=== PATIENT | female | born 1955 | race Caucasian/White ===

== ENCOUNTER 2021-05-21 09:38 | Emergency (ER) | payer MEDICAID, SELFPAY ==
[2021-05-21 09:39] VITALS: O2SAT 98
[2021-05-21 09:40] VITALS: BP 140/81; PULSE 98; RESP 16; TEMP 36.1; O2SAT 97; BMI 24.6
--- NOTE | 2021-05-21 10:01 | EKG12_ITS ---
Test Reason : PALPS Blood Pressure : / mmHG Vent. Rate : 091 BPM Atrial Rate : 091 BPM P-R Int : 148 ms QRS Dur : 076 ms QT Int : 380 ms P-R-T Axes : 061 -17 050 degrees QTc Int : 467 ms Sinus rhythm with marked sinus arrhythmia Low voltage QRS Inferior infarct , age undetermined Abnormal ECG Confirmed by RICHIE RAMSEY, SHIRA ([id number]), editor managing director KATHLEEN VU ([id number]) on 05/22/2021 2:05:13 PM Referred By: FLO Confirmed By:SHIRA QIUROZ MD
--- NOTE | 2021-05-21 10:01 | EDS_ITS ---
HPI History of Present Illness Chief Complaint: Shortness of Breath Informant: patient Narrative Narrative: Presents for evaluation palpitations over the past few days. 10 days into Covid symptoms. Diagnosed with Covid at [facility] a week ago. Reported headache myalgias nausea and diarrhea. Loss of taste and smell. Mild cough. No dyspnea. Decreased appetite. Covid exposure with roommate. Denies chest or abdominal pain. No urinary symptoms. Prior similar symptoms: No PFSH PFSH Allergy/AdvReac Type Severity Reaction Status Date / Time No Known Allergies Allergy Verified 05/21/21 09:40 Social History Smoking Status: Never smoker ROS ROS ED Constitutional Constitutional ED: Reports fever(s); Denies chills or sweats Eyes Eyes: Denies change in vision ENT ENT ED: Denies dysphagia or sore throat Cardiovascular Cardiovascular: Denies chest pain, leg edema, palpitations or racing heartbeat Respiratory/Chest Respiratory/Chest: Reports cough; Denies dyspnea or dyspnea on exertion Gastrointestinal Gastrointestinal: Reports diarrhea; Denies abdominal pain, nausea or vomiting Genitourinary Genitourinary ED: Denies dysuria, hematuria or urinary frequency Musculoskeletal Musculoskeletal: Reports myalgias; Denies back pain, extremity pain or neck pain Integumentary Denies rash or wounds Neurologic Neurologic: Reports headache(s); Denies paresthesias or weakness EXAM Physical Exam Const Vital Signs: 05/21/21 09:39 05/21/21 09:40 05/21/21 12:44 Temperature 97 F L Temperature Source Temporal Pulse Rate 98 Respiratory Rate 16 Respiratory Effort Normal Blood Pressure 140/81 H 129/82 H Blood Pressure Mean 100 97 Pulse Ox 97 95 Oxygen Delivery Method Room Air Room Air 05/21/21 13:51 Temperature Temperature Source Pulse Rate 71 Respiratory Rate 18 Respiratory Effort Blood Pressure 125/82 H Blood Pressure Mean Pulse Ox 95 Oxygen Delivery Method Positive well nourished and well developed General Appearance ED: well developed and NAD HEENT HEENT Narrative: Mild dry mucosal membranes. normocephalic and atraumatic Eyes PERRL, EOMs intact bilaterally and conjunctivae normal General Eye ED: Yes normal appearance of both eyes Neck no lymphadenopathy and supple General: Negative for tenderness Chest Wall Chest: Negative for tenderness Resp normal respiratory effort and normal air movement Effort and Inspection: symmetric chest movement; Negative for respiratory distress Cardio regular rate, regular rhythm and no murmurs Peripheral Pulses: pulses 2+ throughout GI normal to inspection, nondistended, normoactive bowel sounds and non-tender Palpation: Negative for guarding or rebound tenderness present Back/Spine no CVA tenderness and no thoracic nor lumbar tenderness Extremity normal to inspection General Extremety ED: Negative for edema or tenderness General Extremity: Negative for edema Neuro oriented x3 and no sensory deficits noted Sensorium / Orientation: awake and alert Skin no rashes or lesions noted and no wounds MDM MDM MDM Narrative Medical decision making narrative: Patient presenting with confirmed Covid per patient. She is on day 10. Vitals stable pulse ox 97% on arrival. She has no past medical history. Primary complaint palpitations. EKG was normal. I did check electrolytes, sodium 132 potassium 3.3, creatinine 0.71. She was given a liter of fluids with her slight dry mucosal membranes. Potassium was replaced. Reevaluation she states chest discomfort, chest x-ray obtained noting right lower lobe developing infiltrate. This secondary to Covid. Discussed viral syndrome with the patient. Troponin did return negative. Patient not hypoxic no respiratory distress, low suspicion for PE. I discussed findings with the patient. Patient did not meet any criteria for antibiotic treatment. I discussed this with the patient. Discussed monitor for worsening respiratory symptoms. Discussed picking up on pulse oximeter monitoring for lower pulse ox. Return precautions discussed. All questions were answered. Patient is being discharged under pandemic conditions under declared global, national and state disaster activation, with limited medical resources. Patient and community understands this. Results discussed in layman's terms to the patient satisfaction. All questions answered in layman's terms. Patient understands importance of follow-up care as directed. Patient has been instructed to return to the ED immediately if new symptoms, problems, or questions occur. We mutually agree with the plan of disposition. The patient understand that they may call or return with any questions or concerns at any time. Lab Data Labs: Laboratory Results - last 24 hr 05/21/21 05/21/21 10:20 10:20 Sodium 132 L Potassium 3.3 L Chloride 98 Carbon Dioxide 25.0 Anion Gap 9 BUN 7 Creatinine 0.71 Estim Creat Clear Calc 86.56 Est GFR (MDRD) Af Amer 106 Est GFR (MDRD) Non-Af 88 BUN/Creatinine Ratio 9.8 L Glucose 103 Calcium 8.5 Troponin I High Sens 5 Radiography Chest X-Ray - ED: 1 View, Read by ED Physician and Read by Radiologist Diagnostic Testing: Clinical Impression(s) from Imaging Studies Chest X-Ray 05/21/21 11:00 IMPRESSION: Developing right lower lobe airspace disease. Electronically Signed: Lan Castillo MD (Brooks) at 11:14 EST , Service support , EKG Initial EKG: Attestation: I personally reviewed and interpreted this EKG as follows: Comments: Sinus rate of 91, no ST or T wave changes. QTc 467. Discharge Plan Triage Chief Complaint: Shortness of Breath ED Provider: Chandler Arevalo Dx/Rx/DC Orders Clinical Impression: Pneumonia due to COVID-19 virus, Palpitation, Acute hypokalemia, Acute hyponatremia, Chest pain Instructions: Coronavirus Disease 2019 (COVID-19): Caring for Yourself or Others, ED Chest Pain, Uncertain Cause Primary Care Provider: Kenney Vigil Referrals: Kenney Vigil DO [Primary Care Provider] - 5-7 Days Activity Restrictions/Additional Instructions: Your EKG is normal. Laboratory notes sodium 132, potassium 3.3. Troponin negative. Chest x-ray right lower lobe pneumonia. This is due to Covid with viral infection. Antibiotics will not help. Her pulse ox 95 to 97%. Monitor for any worsening symptoms to return otherwise follow-up with your doctor. Disposition Disposition: Home, Self Care Discharge Date/Time: 05/21/21 14:00
--- NOTE | 2021-05-21 10:03 | NURSING ---
NO OLD EKGS
[2021-05-21] MEDS: 0.9% Normal Saline 1,000 ML 1000 ML IV (10:29)
[2021-05-21 10:50] LABS: Anion Gap 9 (5-15); BUN 7 mg/dL (7-18); BUN/Creat Ratio 9.8 RATIO (10-20); Calcium,Total 8.5 mg/dL (8.5-10.1); Chloride 98 mmol/L (98-107); Creatinine, Serum 0.71 mg/dL (0.55-1.02); EST Glomerular Filtration Rate 88 mL/min (>60); Est Glom Filt Rate - Afr Amer 106 mL/min (>60); Estimated Creatinine Clearance 86.56 ml/min; Glucose 103 mg/dL (74-106); Potassium 3.3 mmol/L (3.5-5.1); Sodium Level 132 mmol/L (136-145)
--- NOTE | 2021-05-21 11:00 | RAD_ITS ---
STUDY: X-RAY CHEST REASON FOR EXAM: Female, 66 years old. cough TECHNIQUE: AP COMPARISON: None. FINDINGS: EKG leads project over the chest. Ill-defined parenchymal opacity of the right lung base. There is no demonstrated pleural abnormality. Normal size heart. Normal mediastinum and sabrina. Normal visualized pulmonary arteries. Normal visualized aortic arch and descending thoracic aorta. Normal visualized thoracic spine. Normal visualized ribs, clavicles, and shoulders. There is no demonstrated abnormality of the visualized soft tissue structures of the upper abdomen. RAD/Chest 1 View (Portable) IMPRESSION: Developing right lower lobe airspace disease. Electronically Signed: Lan Castillo MD (Brooks) at 11:14 EST , Service support ,
[2021-05-21 12:44] VITALS: BP 129/82; O2SAT 95
[2021-05-21 13:38] LABS: Troponin-I HS 5 pg/mL (3.0-54.0)
[2021-05-21 13:51] VITALS: BP 125/82; PULSE 71; RESP 18; O2SAT 95
[2021-05-21] MEDS: Potassium Chloride Oral Tablet 20 MEQ 40 MEQ PO (13:51)
== END 2021-05-21 14:00 | disposition home or self-care (01) ==
PROVIDERS: Emergency Provider Emergency Medicine; PCP Student in an Organized Health Care Education/Training Program
DX: U07.1 COVID-19 (principal); J12.82 Pneumonia due to coronavirus disease 2019; E87.6 Hypokalemia; E87.1 Hypo-osmolality and hyponatremia; R00.2 Palpitations; R19.7 Diarrhea, unspecified
CPT/HCPCS: 71045; 80048; 84484; 93005; 96360; 96361; 99284; J7030; A4216

== ENCOUNTER 2022-08-04 12:27 | Inpatient (IN) | payer MEDICARE, MEDICAID, SELFPAY ==
[2022-08-04] VITALS (26 sets, daily range): BP systolic 92–139; BP diastolic 69–104; PULSE 86–127; RESP 12–88; TEMP 36.6–36.7; O2SAT 93–99; BMI 25.9
--- NOTE | 2022-08-04 12:37 | ED.VIS.CHEST ---
HPI History of Present Illness Chief Complaint: Palpitations Narrative Narrative: 67-year-old female here for palpitations. Spoke with the patient's oncologist Dr. Crawford who noted the patient has been experiencing 2 weeks of fatigue intermittent palpitations. He states he performed an EKG in his office which showed A. fib with RVR. He told her to come right away. The patient states she is having 2 weeks of intermittent palpitations notes some occasional shortness of breath and chest discomfort. States symptoms have been intermittent, severe, worse with exertion, improved by rest. The patient denies recent surgery in the last 4 weeks or immobilization in the last 3 days, denies previous diagnosis of DVT or PE, hemoptysis, unilateral leg swelling or malignancy with treatment the last 6 months. No estrogen use noted. CVD Risk Factors: Negative for Family History 1' </=55 [facility] Medical History (Updated 08/04/22 @ 15:[address] Mark Teixeira, DO) A-fib Hypotension Allergy/AdvReac Type Severity Reaction Status Date / Time No Known Allergies Allergy Verified 08/04/22 12:28 Social History Smoking Status: Never smoker ROS ROS ED ROS Narrative Constitutional: Denies fever HEENT: Denies sore throat Neck: Denies neck pain Cardiovascular: Denies chest pain, syncope, endorses palpitations Respiratory: Denies shortness of breath GI: Denies nausea vomiting or abdominal pain : Denies changes in urinary habits Musculoskeletal: Denies muscle or joint pain Neurologic: Denies numbness weakness or loss of sensation Skin denies rash EXAM Physical Exam Narrative Exam Narrative: Nursing triage notes reviewed, Vital signs reviewed Constitutional: please see mdm HENT: MMM Eyes: Pupils equal round and reactive to light, Extraocular muscles intact Neck: No stridor, + JVD, full neck ROM Lungs: Clear to auscultation, No wheezing or rales. No increased work of breathing, no conversational dyspnea, no accessory muscle use, no nasal flaring. No respiratory distress noted Heart: Fast, irregular rate consistent with atrial fibrillation no murmurs, No rubs and No gallops, 2+ distal pulses (radial, femoral, posterior tibial) in all extremities Abdomen: Soft, there is no tenderness, rigidity, rebound or guarding, no obvious peritoneal signs, no palpable pulsatile abdominal masses, no auscultated abdominal bruit : No CVAT Extremities: No edema Neuro: No focal neurological deficits, cranial nerves II through XII intact, 5/5 strength in all extremities. Intact sensation to light touch in all extremities, 2+ reflexes bilateral patella dens. Normal gait. No ataxia. Skin: No rash or lesions noted Const Vital Signs: 08/04/22 12:28 08/04/22 13:12 08/04/22 14:14 Temperature 98 F Temperature Source Temporal Pulse Rate 123 H 100 Respiratory Rate 18 20 H Blood Pressure 139/104 H 128/103 H Blood Pressure Mean 115 111 Pulse Ox 96 97 Oxygen Delivery Method Room Air Room Air Room Air 08/04/22 14:50 Temperature Temperature Source Pulse Rate Respiratory Rate 88 H Blood Pressure Blood Pressure Mean Pulse Ox Oxygen Delivery Method MDM MDM MDM Narrative Medical decision making narrative: Chief Complaint: External records reviewed: I considered: Arrhythmia, SVT, a flutter, A. fib, ACS, electrolyte abnormality, dehydration, anemia, PE, pneumonia, thyroid dysfunction Initial EKG showed A. fib with RVR but no obvious ischemic changes. Labs images were remarkable for pulmonary edema on x-ray but no pneumonia. BNP elevated consistent with the patient's JVD and concern for heart failure secondary to A. fib with RVR. I treated the patient with oral metoprolol and IV metoprolol gave her aspirin. No evidence of acute myocardial ischemia on EKG or troponin. TSH within normal limits no evidence of hyperthyroidism is precipitating cause labs with hypokalemia as wel. This was replaced. Patient continued to be in A. fib with RVR despite treatment with metoprolol both orally and IV. Given ongoing arrhythmia, elevated heart rate, signs of CHF admit the patient for ongoing evaluation. I held giving Lasix at this time given patient's soft blood pressures. I considered pulm embolism as a potential etiology however patient had a low risk Wells score and no stigmata of VTE on exam I considered obtain a CT of the chest without is unnecessary at this time. Factors affecting care: History of thrombocytosis Social determinants of health: Elderly History obtained from others: Dr. Crawford (oncologist) Shared decision making: I will have a discussion with the patient and or visitors regarding risk/benefits of further testing or admission. They will be made aware of of the risk/benefits inherent in this decision they will be given the opportunity to voice understanding. Consults: Spoke with the patient's oncologist. He endorses patient presented with palpitations noted to be in A. fib with RVR sent her directly to the emergency department. Spoke with hospitalist (Dr. Grover) who agreed with the admission. Lab Data Attestation: I reviewed the patient's lab results. Lab results narrative: CBC without significant leukocytosis or anemia, no thrombocytopenia noted baseline thrombocytosis BMP with evidence of hypokalemia, no significant anion gap to suggest endorgan hypoperfusion or acute kidney injury Magnesium is within normal limits TSH within normal limits no evidence of hyperthyroidism Troponin negative for evidence of myocardial ischemia BNP elevated concerning for volume overload a Labs: Laboratory Results - last 24 hr 08/04/22 08/04/22 08/04/22 12:50 12:50 12:50 WBC 8.3 RBC 3.71 L Hgb 13.0 Hct 38.4 MCV 103.5 H MCH 35.0 H MCHC 33.9 RDW Std Deviation 56.3 H RDW Coeff of Krista 14.7 H Plt Count 670 H MPV 11.5 Immature Gran % (Auto) 0.400 Neut % (Auto) 74.4 H Lymph % (Auto) 15.5 L Bailey % (Auto) 8.7 Eos % (Auto) 0.0 Baso % (Auto) 1.0 Absolute Neuts (auto) 6.2 Absolute Lymphs (auto) 1.28 Nucleated RBC % 0 Sodium 141 Potassium 2.8 L Chloride 112 H Carbon Dioxide 20.0 L Anion Gap 9 BUN 11 Creatinine 0.68 Estim Creat Clear Calc 86.20 Est GFR (MDRD) Af Amer 113 Est GFR (MDRD) Non-Af 93 BUN/Creatinine Ratio 16.3 Glucose 87 Calcium 7.1 L Magnesium 1.8 Troponin I High Sens 8 B-Natriuretic Peptide 563.0 H TSH 1.41 Radiography Diagnostic Testing: Clinical Impression(s) from Imaging Studies Chest X-Ray 08/04/22 13:12 IMPRESSION: Bibasilar pulmonary infiltrates. Follow-up is recommended. Electronically Signed: Javid Wesley MD at 13:42 EST , EKG Initial EKG: Attestation: I personally reviewed and interpreted this EKG as follows: Comments: EKG shows A. fib with RVR possibly a flutter, no obvious STEMI or ischemic changes Kavon EKG continues to show A. fib with RVR despite metoprolol treatment no obvious STEMI or evidence of myocardial ischemia Discharge Plan Triage Chief Complaint: Palpitations ED Provider: Mark Teixeira Dx/Rx/DC Orders Clinical Impression: Atrial fibrillation with rapid ventricular response, CHF (congestive heart failure), Acute hypokalemia Primary Care Provider: Kenney Vigil Referrals: Kenney Vigil DO [Primary Care Provider] - Disposition Disposition: Acute Care Hospital [facility]
--- NOTE | 2022-08-04 13:12 | RAD_ITS ---
STUDY: X-RAY CHEST REASON FOR EXAM: Female, 67 years old. Chest pain TECHNIQUE: Single AP portable view of the chest. COMPARISON: Comparison is made with prior study dated 05/21/2021. FINDINGS: EKG electrodes are seen. Persistent bibasilar pulmonary infiltrates slightly worse on the left side. Follow-up is recommended. Blunting of the right costophrenic angle. Normal size heart. Normal mediastinum and sabrina. Normal visualized pulmonary arteries. Normal visualized aortic arch and descending thoracic aorta. Normal visualized thoracic spine. Normal visualized ribs, clavicles, and shoulders. There is no demonstrated abnormality of the visualized soft tissue structures of the upper abdomen. RAD/Chest 1 View (Portable) IMPRESSION: Bibasilar pulmonary infiltrates. Follow-up is recommended. Electronically Signed: Javid Wesley MD at 13:42 EST ,
--- NOTE | 2022-08-04 13:12 | EKG12_ITS ---
Test Reason : CHEST TIGHT Blood Pressure : / mmHG Vent. Rate : 144 BPM Atrial Rate : 000 BPM P-R Int : 000 ms QRS Dur : 068 ms QT Int : 284 ms P-R-T Axes : 000 016 021 degrees QTc Int : 439 ms Atrial fibrillation with rapid ventricular response with premature ventricular or aberrantly conducte d complexes Low voltage QRS Nonspecific ST abnormality Abnormal ECG Confirmed by RICIHE RAMSEY, SHIRA ([id number]), supervising editor news reel RUDDY BELTRÁN ([id number]) on 08/06/2022 2:13:08 PM Referred By: AZUL Confirmed By:SHIRA QUIROZ MD
[2022-08-04] MEDS: Aspirin 81 MG TAB.CHEW 324 MG PO (13:21)
[2022-08-04] MEDS: 0.9% Normal Saline 1,000 ML 1000 ML IV (13:23)
[2022-08-04 13:25] LABS: Absolute Lymphocyte Count 1.28 X10^3/uL (0.83-4.51); Absolute Neutrophil Count 6.2 X10^3/uL (2.0-7.7); Basophil# 0.08 X10^3/uL; Hematocrit 38.4 % (37-47); Lymphocyte # 1.28 X10^3/ul (0.83-4.51); Lymphocyte % 15.5 % (19-41); Mean Corp Hgb Conc 33.9 g/dL (32-36); Mean Corpuscular Volume 103.5 fL (81-99); Mean Platelet Vol. 11.5 fl (6.2-12.0); Monocyte# 0.72 X10^3/uL; Monocyte% 8.7 % (0-10); NRBC Flagged by Analyzer 0 % (0-5); Neutrophil # 6.16 X10^3/uL (2.7-7.7); Neutrophil % 74.4 % (47-70); Platelet Count 670 K/mm3 (150-450); RBC Distribution Width CV 14.7 % (11.6-14.6); RBC Distribution Width SD 56.3 fl (35.1-43.9); Red Blood Count 3.71 M/mm3 (4.2-5.4); White Blood Count 8.3 K/mm3 (4.4-11.0)
[2022-08-04] MEDS: Metoprolol Tartrate 25 MG Tablet PO (13:26)
[2022-08-04 13:47] LABS: Anion Gap 9 (5-15); BUN 11 mg/dL (7-18); BUN/Creat Ratio 16.3 RATIO (10-20); Calcium,Total 7.1 mg/dL (8.5-10.1); Chloride 112 mmol/L (98-107); Creatinine, Serum 0.68 mg/dL (0.55-1.02); EST Glomerular Filtration Rate 93 mL/min (>60); Est Glom Filt Rate - Afr Amer 113 mL/min (>60); Glucose 87 mg/dL (74-106); Magnesium 1.8 mg/dL (1.6-2.6); Potassium 2.8 mmol/L (3.5-5.1); Sodium Level 141 mmol/L (136-145); Thyroid Stim Hormone (TSH) 1.41 uIU/mL (0.358-3.74); Troponin-I HS 8 pg/mL (3.0-54.0)
[2022-08-04] MEDS: Metoprolol Tartrate 5 MG/5 ML Vial IV (14:06)
[2022-08-04] MEDS: Potassium Chloride Oral Tablet 20 MEQ 60 MEQ PO (14:13)
--- NOTE | 2022-08-04 14:25 | EKG12_ITS ---
Test Reason : RECHECK Blood Pressure : / mmHG Vent. Rate : 121 BPM Atrial Rate : 187 BPM P-R Int : 000 ms QRS Dur : 070 ms QT Int : 344 ms P-R-T Axes : 000 039 031 degrees QTc Int : 488 ms Atrial fibrillation Low voltage QRS Borderline ECG When compared with ECG of 04-AUG-2022 12:34, MANUAL COMPARISON REQUIRED, DATA IS UNCONFIRMED Confirmed by RICHIE RAMSEY, SHIRA ([id number]), technical editor RUDDY BELTRÁN ([id number]) on 08/06/2022 2:12:46 PM Referred By: Confirmed By:SHIRA QUIROZ MD
--- NOTE | 2022-08-04 14:50 | ED.RN ---
APICAL PULSE 88. VERIFIED X2 NURSES. MONITOR COUNTING t WAVE AT TIMES. PULSE OX HR SAME AUSCULTATED. DR AWARE. NO TOT GIVEN ANY FURTHER METOPROL AT THIS TIME.
--- NOTE | 2022-08-04 15:54 | HP.PCM.HOS_ITS ---
HPI - General General Date of Admission: 08/04/22 Date of Service: 08/04/22 Chief Complaint: palpiations HPI Narrative JACK ALONZO, is a 67 F who presents with 2 weeks of palpitations. Patient does have a history of paroxysmal atrial fibrillation and had been on metoprolol in the past but was taken off due to low blood pressures and being in normal sinus rhythm. Patient was seeing a Dr. Rosas in [place] for this. This felt similar to prior episodes of flareups of her A. fib but this was more persistent. Today, patient had an appointment at Dr. Crawford's office for thrombocytosis and noted that her heart rate was fast and sent her to the emergency room. Patient was noted to be in A. fib with RVR and she received 5 mg IV metoprolol tartrate x1 and 25 mg p.o. x1. Heart rate did slightly improved but the hospital service was contacted. Patient's potassium was noted to be 2.8 and did receive 60 mEq of potassium in the emergency room as well as aspirin. [facility] Medical History A-fib Hypotension Thrombocytosis Home Medications cetirizine 10 mg tablet 10 mg PO DAILY ALLERGIES 08/04/22 [History Last Taken Unknown] Allergy/AdvReac Type Severity Reaction Status Date / Time No Known Allergies Allergy Verified 08/04/22 12:28 Family History (Updated 08/04/22 @ 15:[address] Malvin Grover DO) Grandmother No problems noted. Mother Heart disease Social History (Updated 08/04/22 @ 15:[address] Malvin Grover DO) Smoking Status: Never smoker alcohol intake: current alcohol intake frequency: holidays/special occasions only substance use type: marijuana ROS ROS Narrative Was had some chest pain with this. Did have some pulsations in her neck with her tachycardia. All review of systems were negative except as mentioned above in the history of present illness and the other review of systems. Vital Signs Vital Signs Vital Signs: 08/04/22 12:28 08/04/22 13:12 08/04/22 14:14 Temperature 36.6 C Temperature Source Temporal Pulse Rate 123 H 100 Respiratory Rate 18 20 H Blood Pressure 139/104 H 128/103 H Blood Pressure Mean 115 111 Pulse Ox 96 97 Oxygen Delivery Method Room Air Room Air Room Air 08/04/22 14:50 08/04/22 15:30 Temperature Temperature Source Pulse Rate 86 Respiratory Rate 88 H 16 Blood Pressure Blood Pressure Mean Pulse Ox 98 Oxygen Delivery Method Room Air Weight Weight: 79.7 kg Body Mass Index (BMI) 25.9 Physical Exam Const alert and no apparent distress HEENT normocephalic and hearing grossly normal bilaterally Neck no lymphadenopathy Neck Narrative: No thyromegaly Resp normal respiratory effort, no retractions, no use of accessory muscles and clear to auscultation bilaterally Cardio regular rate, regular rhythm, S1 normal heart sound and S2 normal heart sound GI normal to inspection, nondistended, normoactive bowel sounds, soft to palpation, non-tender and non-distended Extremity normal to inspection Neuro oriented x3 and moves all extremities Sensorium / Orientation: awake and alert Psych affect normal Results Lab / Micro Data Attestation: I reviewed the patient's lab results. Result Diagrams: 08/04/22 12:50 08/04/22 12:50 Labs: Laboratory Results - last 24 hr 08/04/22 12:50: WBC 8.3, RBC 3.71 L, Hgb 13.0, Hct 38.4, MCV 103.5 H, MCH 35.0 H , MCHC 33.9, RDW Std Deviation 56.3 H, RDW Coeff of Krista 14.7 H, Plt Count 670 H, MPV 11.5, Immature Gran % (Auto) 0.400, Neut % (Auto) 74.4 H, Lymph % (Auto) 15.5 L, Bremer % (Auto) 8.7, Eos % (Auto) 0.0, Baso % (Auto) 1.0, Absolute Neuts (auto) 6.2, Absolute Lymphs (auto) 1.28, Nucleated RBC % 0 08/04/22 12:50: Sodium 141, Potassium 2.8 L, Chloride 112 H, Carbon Dioxide 20.0 L, Anion Gap 9, BUN 11, Creatinine 0.68, Estim Creat Clear Calc 86.20, Est GFR (MDRD) Af Amer 113, Est GFR (MDRD) Non-Af 93, BUN/Creatinine Ratio 16.3, Glucose 87, Calcium 7.1 L, Magnesium 1.8, Troponin I High Sens 8, TSH 1.41 08/04/22 12:50: B-Natriuretic Peptide 563.0 H EKG Initial EKG: Attestation: I personally reviewed and interpreted this EKG as follows: Prior EKG tracings: available for review EKG Rhythm Intrepretation: Atrial Fibrillation (With RVR) Radiology Impression Chest X-Ray 08/04/22 13:12 IMPRESSION: Bibasilar pulmonary infiltrates. Follow-up is recommended. Electronically Signed: Javid Wesley MD at 13:42 EST , Assessment & Plan Assessment/Plan (1) Atrial fibrillation with rapid ventricular response: PLAN: Patient has a history of paroxysmal atrial fibrillation and was stopped with a it security administrator in [place] for this. Have been taken off metoprolol in the past due to being in normal sinus rhythm but also having a lower blood pressure. Patient did receive metoprolol in the emergency room but heart rate is continued to climb upwards. Will initiate diltiazem bolus as well as drip. If patient's blood pressure does state lower go lower may need to consider amiodarone infusion. Patient is [id number] score is 2 and did discuss with her about recommendations for anticoagulation to help prevent stroke. Patient is clearly was not happy about being on anticoagulation but understood the risks and associated with not being anticoagulant including stroke. We will initiate anticoagulation with enoxaparin for now. Check an echocardiogram Consult cardiology Check TSH (2) Acute hypokalemia: PLAN: Received 60 mK in the emergency room Check magnesium level in her place of low PLAN: Plan Chronic conditions * Thrombocytosis: Patient was to see Dr. Crawford today but was sent here because of the A. fib. Follow up as outpatient. VTE prophylaxis: Not indicated patient be anticoagulated CHF: Ruled out. X-ray reviewed and did not show any evidence of any vascular congestion. BNP was elevated but that is most likely due to the patient being in each fibrillation with RVR. Charges/Coding Visit Charges Inpatient E&M: 69492 Init Hosp L3
--- NOTE | 2022-08-04 16:01 | ECHOCS_ITS ---
Reason For Study: Afib/Flutter Procedure This was a 2D Doppler, Color Flow transthoracic echocardiogram. The study was technically difficult. Contrast injection was performed. Exam performed portable in patient room. Left Ventricle Normal LV size. The estimated ejection fraction is 37 %. There is moderate global hypokinesis of the left ventricle. Right Ventricle Moderately dilated right ventricle. Mild global right ventricular systolic dysfunction. Atria The left atrium is moderately enlarged. The right atrium is mildly enlarged. Mitral Valve Bileaflet diffuse mitral valve thickening. Tricuspid Valve Normal tricuspid valve. Mild tricuspid valve insufficiency. Pulmonary artery systolic pressure is 26 mmHg. Aortic Valve Trisinus/trileaflet aortic valve. Pulmonic Valve Normal pulmonic valve. Great Vessels Normal aortic root. The pulmonary artery is normal size. Normal inferior vena cava. Pericardium/Pleural Small pericardial effusion. Medication Diluted definity 2ml given slow IV push to enhance endocardial definition. MMode/2D Measurements & Calculations LVIDd: 5.1 cm IVSd: 0.49 cm Ao root diam: 3.6 cm LVIDs: 3.8 cm LVPWd: 0.52 cm LA dimension: 3.9 cm RVDd: 3.2 cm FS: 26.0 % LAV(MOD-bp): 70.6 ml LA A4 area: 24.3 cm2 RA A4 area: 22.8 cm2 LAV(MOD-bp) Indexed: 36.2 ml/m2 LAV(MOD-sp2): 52.7 ml LAV(MOD-sp4): 71.8 ml Doppler Measurements & Calculations MV E max noemy: 96.9 cm/sec MV V2 max: 129.9 cm/sec Ao V2 max: 76.8 cm/sec MV max P.7 mmHg Ao max P.4 mmHg MV V2 mean: 65.1 cm/sec MV mean P.2 mmHg MV V2 VTI: 27.0 cm LV V1 max: 59.8 cm/sec MR max noemy: 410.8 cm/sec PA V2 max: 57.3 cm/sec LV V1 max P.4 mmHg MR max P.5 mmHg MR mean noemy: 329.6 cm/sec MR mean P.0 mmHg MR VTI: 128.2 cm TR max noemy: 237.7 cm/sec TR max P.6 mmHg ECHO/Echo Complete W/ Contrast Interpretation Summary Normal LV size. The estimated ejection fraction is 37 %. The left atrium is moderately enlarged. Small pericardial effusion. Ordering Physician: Malvin Grover Referring Physician: Kenney Vigil Performed By: Ron Aguirre RCS
[2022-08-04] MEDS: dilTIAZem 25 MG/5 ML Vial 20 MG IV BOLUS (16:41)
[2022-08-04 17:16] LABS: Magnesium 2.1 mg/dL (1.6-2.6); Troponin-I HS 9 pg/mL (3.0-54.0)
[2022-08-04] MEDS: Enoxaparin 80 MG/0.8 ML Syringe SC (17:37)
--- NOTE | 2022-08-04 18:56 | CON.PCM.CA_ITS ---
Assessment & Plan Assessment/Plan (1) Atrial fibrillation with rapid ventricular response: PLAN: She presents with atrial fibrillation with a rapid ventricular response rate. The duration of the above is unclear. It does appear that she has been previously diagnosed with this. She had been following up with a petroleum refining firer in [place] who had discontinued her metoprolol. At this particular time I would recommend that we rate control her with intravenous diltiazem and switch her to oral metoprolol in a.m. She does have a [id number] score of 2 and can be anticoagulated. I have discussed this with the oncologist and he has no issues with this. (2) CHF (congestive heart failure): PLAN: She does appear to be in mild congestive heart failure likely secondary to the atrial fibrillation with a rapid ventricular response rate. I suspect this has been going on for a little bit. I would recommend we obtain an echocardiogram for assessment of her ventricular function. * She should be diuresed and her potassium corrected. * It is not clear why she is that hypokalemic. * * Thank you for allowing me to participate in the care of your patient. Please don't hesitate to call if any issues arise. HPI Consult Data Date of Consult: 08/04/22 HPI Narrative HPI Narrative: JAKC ALONZO, is a 67 F who presents after being sent from her oncologist office where she was being evaluated for essential thrombocytosis. She was noted to be in atrial fibrillation with rapid ventricular response rate. She denies any dizziness or diaphoresis near syncope or syncope she however says that she has been short of breath for a bit. She thinks that she was in atrial fibrillation about 6 months ago and saw the petroleum refining firer and was taken off her beta-shira. She does not know whether she has been in and out of atrial fibrillation and does not always feel these episodes. She however has noted progressive shortness of breath and today when she went to see her oncologist was noted to be in atrial fibrillation and sent to the emergency room. She denies any chest pain or paroxysmal nocturnal dyspnea she has not had a cough no pedal edema. [facility] Medical History A-fib Hypotension Thrombocytosis Home Medications cetirizine 10 mg tablet 10 mg PO DAILY ALLERGIES 08/04/22 [History Last Taken Unknown] Allergy/AdvReac Type Severity Reaction Status Date / Time No Known Allergies Allergy Verified 08/04/22 12:28 Family History Grandmother No problems noted. Mother Heart disease Social History Smoking Status: Never smoker alcohol intake: current alcohol intake frequency: holidays/special occasions only substance use type: marijuana ROS Constitutional Constitutional: Denies fever(s) or weight loss Eyes Eyes: Reports systems reviewed and no addt'l complaints, except as documented ENT HEENT: Reports systems reviewed and no addt'l complaints, except as documented Cardiovascular Cardiovascular: Reports dyspnea at rest, dyspnea on exertion and palpitations; Denies chest pain at rest, chest pain with activity, edema or paroxysmal nocturnal dyspnea Respiratory/Chest Respiratory/Chest: Denies dyspnea on exertion, productive cough, shortness of breath at rest or shortness of breath with exertion Gastrointestinal Gastrointestinal: Denies change in bowel habits, nausea, vomiting or weight changes Genitourinary Genitourinary: Denies difficulty urinating Musculoskeletal Musculoskeletal: Denies joint stiffness or muscle weakness Integumentary Integumentary: Denies lesions Neurologic Neurologic: Denies dizziness or syncope Psychiatric Psychiatric: Denies anxiety Endocrine Endocrinology: Denies excessive sweating or fatigue Hematologic/Lymphatic Hematologic/Lymphatic: Denies anemia Allergic/Immunologic Allergic/Immunologic: Denies seasonal rhinorrhea Physical Exam Const alert, oriented x3 and no apparent distress General Appearance: cooperative HEENT hearing grossly normal bilaterally Head and Scalp: atraumatic Eyes EOMs intact bilaterally Neck General: normal visual inspection Chest inspection of chest normal and palpation of chest normal Resp normal respiratory effort Auscultation: clear to auscultation bilaterally Cardio S1 normal heart sound and S2 normal heart sound Jugular Venous Distention: JVD Rhythm: abnormal rhythm GI normal to inspection, nondistended, normoactive bowel sounds Extremity normal capillary refill and no pedal edema Peripheral Pulses: Yes pulses 2+ throughout and femoral pulses present Skin no rashes or lesions noted Neuro oriented x3 and CN's II-XII intact bilaterally Psych Appearance: grossly normal and appropriate Risk Stratification Risk Stratification Applicable: No Objective Data Vital Signs: Vital Signs Temp Pulse Resp BP Pulse Ox O2 Del Method 98.0 F 121 H 14 119/102 H 99 Room Air 08/04/22 15:54 08/04/22 16:45 08/04/22 16:45 08/04/22 16:45 08/04/22 16:45 08/04/22 16:45 Oxygen Delivery Method Room Air Weight: 175 lb 8 oz Body Mass Index (BMI) 25.9 Intake & Output: Intake and Output for Last 24 Hours 08/02/22 08/03/22 08/04/22 23:59 23:59 23:59 Intake Total 1240 / 1240 Balance 1240 / 1240 Lab / Micro Data Result Diagrams: 08/04/22 12:50 08/04/22 12:50 Labs: Laboratory Results - last 24 hr 08/04/22 12:50: WBC 8.3, RBC 3.71 L, Hgb 13.0, Hct 38.4, MCV 103.5 H, MCH 35.0 H , MCHC 33.9, RDW Std Deviation 56.3 H, RDW Coeff of Krista 14.7 H, Plt Count 670 H, MPV 11.5, Immature Gran % (Auto) 0.400, Neut % (Auto) 74.4 H, Lymph % (Auto) 15.5 L, [place] % (Auto) 8.7, Eos % (Auto) 0.0, Baso % (Auto) 1.0, Absolute Neuts (auto) 6.2, Absolute Lymphs (auto) 1.28, Nucleated RBC % 0 08/04/22 12:50: Sodium 141, Potassium 2.8 L, Chloride 112 H, Carbon Dioxide 20.0 L, Anion Gap 9, BUN 11, Creatinine 0.68, Estim Creat Clear Calc 86.20, Est GFR (MDRD) Af Amer 113, Est GFR (MDRD) Non-Af 93, BUN/Creatinine Ratio 16.3, Glucose 87, Calcium 7.1 L, Magnesium 1.8, Troponin I High Sens 8, TSH 1.41 08/04/22 12:50: B-Natriuretic Peptide 563.0 H 08/04/22 16:34: Magnesium 2.1, Troponin I High Sens 9 Cardiology Labs/Tests 08/04/22 12:50: WBC 8.3, RBC 3.71 L, Hgb 13.0, Hct 38.4, MCV 103.5 H, MCH 35.0 H , MCHC 33.9, Plt Count 670 H, MPV 11.5, Immature Gran % (Auto) 0.400, Neut % (Auto) 74.4 H, Lymph % (Auto) 15.5 L, Livingston % (Auto) 8.7, Eos % (Auto) 0.0, Baso % (Auto) 1.0, Absolute Neuts (auto) 6.2, Nucleated RBC % 0 08/04/22 12:50: Sodium 141, Potassium 2.8 L, Chloride 112 H, Carbon Dioxide 20.0 L, Anion Gap 9, BUN 11, Creatinine 0.68, Est GFR (MDRD) Af Amer 113, Est GFR (MDRD) Non-Af 93, BUN/Creatinine Ratio 16.3, Glucose 87, Calcium 7.1 L, M agnesium 1.8 08/04/22 12:50: B-Natriuretic Peptide 563.0 H 08/04/22 16:34: Magnesium 2.1 Rhythm: EKG: ECHO: Stress Test: Cardiac Cath: PCI: CT Surgery: Holter monitor: EPS: PPM: CXR: Chest CT Scan: Radiography Diagnostic Testing: Radiology Impression Chest X-Ray 08/04/22 13:12 IMPRESSION: Bibasilar pulmonary infiltrates. Follow-up is recommended. Electronically Signed: Javid Wesley MD at 13:42 EST ,
[2022-08-04 19:57] LABS: Troponin-I HS 8 pg/mL (3.0-54.0)
[2022-08-04] MEDS: Potassium Chloride Oral Tablet 20 MEQ 40 MEQ PO (20:15)
[2022-08-05] VITALS (17 sets, daily range): BP systolic 91–123; BP diastolic 56–86; PULSE 76–122; RESP 14–20; TEMP 36.5–36.7; O2SAT 93–98
[2022-08-05 06:22] LABS: Absolute Lymphocyte Count 1.43 X10^3/uL (0.83-4.51); Absolute Neutrophil Count 6.1 X10^3/uL (2.0-7.7); Basophil# 0.08 X10^3/uL; Hemoglobin 11.2 g/dL (12.0-15.0); Lymphocyte # 1.43 X10^3/ul (0.83-4.51); Lymphocyte % 17.1 % (19-41); Mean Corpuscular Hgb 33.4 pg (27.0-32.0); Mean Corpuscular Volume 104.5 fL (81-99); Mean Platelet Vol. 11.7 fl (6.2-12.0); Monocyte# 0.74 X10^3/uL; Monocyte% 8.8 % (0-10); NRBC Flagged by Analyzer 0.2 % (0-5); Neutrophil # 6.08 X10^3/uL (2.7-7.7); Neutrophil % 72.6 % (47-70); Platelet Count 632 K/mm3 (150-450); RBC Distribution Width CV 14.8 % (11.6-14.6); RBC Distribution Width SD 56.4 fl (35.1-43.9); Red Blood Count 3.35 M/mm3 (4.2-5.4); White Blood Count 8.4 K/mm3 (4.4-11.0)
[2022-08-05 07:29] LABS: Anion Gap 10 (5-15); BUN 10 mg/dL (7-18); BUN/Creat Ratio 11.6 RATIO (10-20); Calcium,Total 8.7 mg/dL (8.5-10.1); Chloride 106 mmol/L (98-107); Cholesterol 109 mg/dL (200); Creatinine, Serum 0.86 mg/dL (0.55-1.02); EST Glomerular Filtration Rate 70 mL/min (>60); Est Glom Filt Rate - Afr Amer 85 mL/min (>60); Estimated Creatinine Clearance 68.16 ml/min; Glucose 95 mg/dL (74-106); High Density Lipoprotein 38 mg/dL; Potassium 4.5 mmol/L (3.5-5.1); Sodium Level 137 mmol/L (136-145); Triglycerides 58 mg/dL; Very Low Density Lipoprotein 12 mg/dL (5-40)
--- NOTE | 2022-08-05 08:36 | PN.CARD_ITS ---
Subjective Subjective Patient seen and evaluated. Appears to be doing better this morning. Still has some diarrhea and nausea. Objective Data Vital Signs: Vital Signs Temp Pulse Resp BP Pulse Ox O2 Del Method O2 Flow Rate 98.0 F 112 H 17 115/84 H 97 Room Air 2 08/05/22 00:00 08/05/22 06:00 08/05/22 05:00 08/05/22 06:00 08/05/22 05:00 08/05/22 08:12 08/05/22 02:19 Oxygen Flow Rate (L/min) 2 Oxygen Delivery Method Room Air Weight: 175 lb 8 oz Body Mass Index (BMI) 25.9 Intake & Output: Intake and Output for Last 24 Hours 08/03/22 08/04/22 08/05/22 23:59 23:59 23:59 Intake Total 1541.25 / 1556.25 345 / 345 Balance 1541.25 / 1556.25 345 / 345 Lab / Micro Data Result Diagrams: 08/05/22 05:48 08/05/22 05:48 Labs: Laboratory Results - last 24 hr 08/04/22 12:50: WBC 8.3, RBC 3.71 L, Hgb 13.0, Hct 38.4, MCV 103.5 H, MCH 35.0 H , MCHC 33.9, RDW Std Deviation 56.3 H, RDW Coeff of Krista 14.7 H, Plt Count 670 H, MPV 11.5, Immature Gran % (Auto) 0.400, Neut % (Auto) 74.4 H, Lymph % (Auto) 15.5 L, [place] % (Auto) 8.7, Eos % (Auto) 0.0, Baso % (Auto) 1.0, Absolute Neuts (auto) 6.2, Absolute Lymphs (auto) 1.28, Nucleated RBC % 0 08/04/22 12:50: Sodium 141, Potassium 2.8 L, Chloride 112 H, Carbon Dioxide 20.0 L, Anion Gap 9, BUN 11, Creatinine 0.68, Estim Creat Clear Calc 86.20, Est GFR (MDRD) Af Amer 113, Est GFR (MDRD) Non-Af 93, BUN/Creatinine Ratio 16.3, Glucose 87, Calcium 7.1 L, Magnesium 1.8, Troponin I High Sens 8, TSH 1.41 08/04/22 12:50: B-Natriuretic Peptide 563.0 H 08/04/22 16:34: Magnesium 2.1, Troponin I High Sens 9 08/04/22 18:56: Troponin I High Sens 8 08/05/22 05:48: WBC 8.4, RBC 3.35 L, Hgb 11.2 L, Hct 35.0 L, MCV 104.5 H, MCH 33.4 H, MCHC 32.0 D, RDW Std Deviation 56.4 H, RDW Coeff of Krista 14.8 H, Plt Count 632 H, MPV 11.7, Immature Gran % (Auto) 0.500, Neut % (Auto) 72.6 H, Lymph % (Auto) 17.1 L, [place] % (Auto) 8.8, Eos % (Auto) 0.0, Baso % (Auto) 1.0, Absolute Neuts (auto) 6.1, Absolute Lymphs (auto) 1.43, Nucleated RBC % 0.2 08/05/22 05:48: Sodium 137, Potassium 4.5, Chloride 106, Carbon Dioxide 21.0, An ion Gap 10, BUN 10, Creatinine 0.86, Estim Creat Clear Calc 68.16, Est GFR (MDRD) Af Amer 85, Est GFR (MDRD) Non-Af 70, BUN/Creatinine Ratio 11.6, Glucose 95, Calcium 8.7, Magnesium 2.0, Triglycerides 58, Cholesterol 109, LDL Cholesterol 59, VLDL Cholesterol 12, HDL Cholesterol 38 L, TSH 2.30 Cardiology Labs/Tests 08/04/22 12:50: WBC 8.3, RBC 3.71 L, Hgb 13.0, Hct 38.4, MCV 103.5 H, MCH 35.0 H , MCHC 33.9, Plt Count 670 H, MPV 11.5, Immature Gran % (Auto) 0.400, Neut % (Auto) 74.4 H, Lymph % (Auto) 15.5 L, [place] % (Auto) 8.7, Eos % (Auto) 0.0, Baso % (Auto) 1.0, Absolute Neuts (auto) 6.2, Nucleated RBC % 0 08/04/22 12:50: Sodium 141, Potassium 2.8 L, Chloride 112 H, Carbon Dioxide 20.0 L, Anion Gap 9, BUN 11, Creatinine 0.68, Est GFR (MDRD) Af Amer 113, Est GFR (MDRD) Non-Af 93, BUN/Creatinine Ratio 16.3, Glucose 87, Calcium 7.1 L, Magne sium 1.8 08/04/22 12:50: B-Natriuretic Peptide 563.0 H 08/04/22 16:34: Magnesium 2.1 08/05/22 05:48: WBC 8.4, RBC 3.35 L, Hgb 11.2 L, Hct 35.0 L, MCV 104.5 H, MCH 33.4 H, MCHC 32.0 D, Plt Count 632 H, MPV 11.7, Immature Gran % (Auto) 0.500, Neut % (Auto) 72.6 H, Lymph % (Auto) 17.1 L, [place] % (Auto) 8.8, Eos % (Auto) 0.0, Baso % (Auto) 1.0, Absolute Neuts (auto) 6.1, Nucleated RBC % 0.2 08/05/22 05:48: Sodium 137, Potassium 4.5, Chloride 106, Carbon Dioxide 21.0, Anion Gap 10, BUN 10, Creatinine 0.86, Est GFR (MDRD) Af Amer 85, Est GFR (MDRD) Non-Af 70, BUN/Creatinine Ratio 11.6, Glucose 95, Calcium 8.7, Magnesium 2.0, Triglycerides 58, Cholesterol 109, LDL Cholesterol 59, VLDL Cholesterol 12, HDL Cholesterol 38 L Rhythm: EKG: ECHO: Stress Test: Cardiac Cath: PCI: CT Surgery: Holter monitor: EPS: PPM: CXR: Chest CT Scan: Radiography Diagnostic Testing: Radiology Impression Chest X-Ray 08/04/22 13:12 IMPRESSION: Bibasilar pulmonary infiltrates. Follow-up is recommended. Electronically Signed: Javid Wesley MD at 13:42 EST , Physical Exam Const alert, oriented x3 and no apparent distress General Appearance: cooperative HEENT hearing grossly normal bilaterally Head and Scalp: atraumatic Eyes EOMs intact bilaterally Neck General: normal visual inspection Chest inspection of chest normal and palpation of chest normal Resp normal respiratory effort Auscultation: clear to auscultation bilaterally Cardio S1 normal heart sound and S2 normal heart sound Jugular Venous Distention: JVD Rhythm: abnormal rhythm GI normal to inspection, nondistended, normoactive bowel sounds Extremity normal capillary refill and no pedal edema Peripheral Pulses: Yes pulses 2+ throughout and femoral pulses present Skin no rashes or lesions noted Neuro oriented x3 and CN's II-XII intact bilaterally Psych Appearance: grossly normal and appropriate Assessment & Plan Assessment/Plan (1) Atrial fibrillation with rapid ventricular response: PLAN: She presents with atrial fibrillation with a rapid ventricular response rate. The duration of the above is unclear. It does appear that she has been p reviously diagnosed with this. She had been following up with a base wad operator adjuster in [place] who had discontinued her metoprolol. At this particular time I would recommend that we rate control her with intravenous diltiazem and switch her to oral metoprolol in a.m. She does have a [id number] score of 2 and can be anticoagulated. I have discussed this with the oncologist and he has no issues with this. (2) CHF (congestive heart failure): PLAN: She does appear to be in mild congestive heart failure likely secondary to the atrial fibrillation with a rapid ventricular response rate. I suspect this has been going on for a little bit. I would recommend we obtain an echocardiogram for assessment of her ventricular function. * She should be diuresed and her potassium corrected. * It is not clear why she is that hypokalemic. * * Thank you for allowing me to participate in the care of your patient. Please don't hesitate to call if any issues arise.
[2022-08-05] MEDS: Metoprolol Tartrate 50 MG Tablet PO (08:48)
[2022-08-05] MEDS: Acetaminophen 325 MG Tablet 650 MG PO (08:48)
[2022-08-05] MEDS: Ondansetron 4 MG/2 ML Vial IV (08:49)
[2022-08-05] MEDS: Dicyclomine 10 MG Capsule 20 MG PO ×2 (09:30→11:31)
[2022-08-05] MEDS: APIXABAN 5 MG TABLET PO (10:30)
[2022-08-05] MEDS: Potassium Chloride Oral Tablet 20 MEQ 40 MEQ PO (10:30)
[2022-08-05] MEDS: 0.9% Saline Lock 10 ML Syringe IV ×2 (11:17→12:18)
[2022-08-05] MEDS: Furosemide 40 MG/4 ML Vial IV (11:31)
--- NOTE | 2022-08-05 11:40 | CASEMGMT ---
RN CM Face to Face with patient for initial transition planning/care coordination assessment. RN CM introduced self and role at [facility]. Patient lying in bed, alert and oriented. Patient willing to participate in assessment and is able to answer all questions appropriately. Care providers, pharmacy, and demographics verified. Patient wishes to discharge home, denies need for home health at this time. Patient states she has no further needs or concerns at this time. CM to follow for discharge planning needs that may arise. PCP: Musa Specialists: [employer] Analyst [facility] Preferred Pharmacy: [facility] retail at discharge. Insurance: [employer] Prescription Benefit: yes Living Will/HPOA: none LNOK: significant other Living Arrangements: Patient lives with boyfriend in a single story home with bed and bath on first floor. Patient states she is independent at home. Transportation: self, boyfriend DME/HHC: Patient has BSC, grab bars, and walker at home. No previous HHC or SNF. Disposition Plan: Patient to discharge home with family support and follow-up plans in place. Vicenta FUENTES, RN, CM
[2022-08-05] MEDS: Digoxin 250 MCG/ML Ampul 500 MCG IV (12:18)
--- NOTE | 2022-08-05 13:23 | EKG12_ITS ---
Test Reason : RHYTHM CHANGE Blood Pressure : / mmHG Vent. Rate : 063 BPM Atrial Rate : 063 BPM P-R Int : 216 ms QRS Dur : 070 ms QT Int : 432 ms P-R-T Axes : 071 027 026 degrees QTc Int : 442 ms Sinus rhythm with 1st degree A-V block Low voltage QRS Borderline ECG Confirmed by JENNIFER RAMSYE, SARAH ([id number]), assistant film editor KATHLEEN VU ([id number]) on 08/08/2022 9:05:57 AM Referred By: JENNIFER Confirmed By:CLAIRE RODRIGUEZ MD
--- NOTE | 2022-08-05 14:07 | PCM.DC ---
Discharge Instructions Diet Discharge Diet: No restrictions Activity Discharge Activity: Return to Normal Activity Weight Bearing Status: Full weight bearing Follow Up Care Test Results: Test results from this visit will be discussed in further detail at your follow-up appointment, if applicable. Discharge Plan Admission Admit Date/Time: 08/04/22 15:47 Primary Reason for Your Visit: paroxysmal a-fib, congestive heart failure Attending Provider: Tyler Estrella Primary Care Provider: Kenney Vigil Consulting Providers: Patricio Bill ; Malvin Grovre Instructions Additional Instructions / Restrictions: Follow-up with your surgical instruments inspector in 2 weeks Do not take any ibuprofen or Aleve for pain, avoid aspirin, take only Tylenol or Vicodin for pain Any abnormal bleeding in the urine, stool, or nosebleeds-contact your physician Discharge Orders/Prescriptions Prescriptions: New dicyclomine 10 mg Capsule 20 mg PO TID PRN PRN (Reason: diarrhea) Qty: 60 0RF metoprolol tartrate 50 mg Tablet 25 mg PO BID Qty: 60 0RF Eliquis 5 mg Tablet 5 mg PO BID Qty: 60 0RF loperamide 2 mg Capsule 2 mg PO Q4H PRN PRN (Reason: Diarrhea) Qty: 0 0RF spironolactone 50 mg tablet 50 mg PO DAILY Qty: 30 0RF furosemide [Lasix] 40 mg tablet 40 mg PO DAILY Qty: 30 0RF Continued cetirizine 10 mg tablet 10 mg PO DAILY Label Comments: TAKE 1 TABLET BY MOUTH EVERY DAY Referrals / Follow Up: Kenney Vigil DO [Primary Care Provider] - See Referral Note (In 3 to 4 weeks) Disposition Disposition (needs filled in before D/C Order can be placed): Home, Self Care
--- NOTE | 2022-08-05 14:29 | PCM.DC.SUM ---
Providers Date of Admission: 08/04/22 Date of Discharge: 08/05/22 Primary Care Physician: Dr. Kenney Vigil, Consultations 08/04/22 16:01 Consult: Cardiology Routine Consulting Provider: Patricio Bill Reason for Consult: afib EMERGENT Consult: No MD Notified: Yes Date Notified: 08/04/22 Time Notified: 15:52 Method of Notification: Text Reason For Visit: ATRIAL FIBRILATION Diagnosis Discharge Diagnosis (1) Atrial fibrillation with rapid ventricular response: Status: Acute Code(s): I48.91 - Unspecified atrial fibrillation (2) CHF (congestive heart failure): Status: Acute Code(s): I50.9 - Heart failure, unspecified Plan 1. Acute congestive heart failure with reduced ejection fraction #2 paroxysmal atrial fibrillation with RVR #3 hypokalemia Medications at Discharge Home Medications cetirizine 10 mg tablet 10 mg PO DAILY ALLERGIES 08/04/22 apixaban 5 mg tablet (Eliquis) 5 mg PO BID #60 tabs 08/05/22 dicyclomine 10 mg capsule 20 mg PO TID PRN PRN diarrhea #60 caps 08/05/22 furosemide 40 mg tablet (Lasix) 40 mg PO DAILY #30 tabs 08/05/22 loperamide 2 mg capsule 2 mg PO Q4H PRN PRN Diarrhea #0 caps 08/05/22 metoprolol tartrate 50 mg tablet 25 mg PO BID #60 tabs 08/05/22 spironolactone 50 mg tablet 50 mg PO DAILY #30 tabs 08/05/22 Hospital Course Operations None Procedures 2-D Echocardiogram Summary of Care Provided Minutes Spent on Discharge: 32 Hospital Course: This 67-year-old white female was seen in the emergency room with complaints of 2 weeks of palpitations. Patient had a history of atrial fibrillation and had been on metoprolol in the past, she said it was discontinued due to her feeling weak on the medication and having low blood pressure. Patient sees an EP physician in [place] for the paroxysmal atrial fib. Patient had a an appointment at an oncologist office today for thrombocytosis and it was noted that her heart rate was fast and irregular and she was sent to the emergency room for evaluation. Work-up in the ER noted the patient to be in A. fib with RVR, she received 5 mg of IV metoprolol and 25 mg p.o. Patient's beta natruretic peptide was elevated at 563. Patient's potassium was also noted to be low at 2.8, showed evidence of bibasilar pulmonary infiltrates. Patient did not require supplemental oxygen. Patient was admitted to PCU, she was placed on a Cardizem drip, she was placed on IV Lasix, seen in consultation by cardiology and echocardiogram was performed which showed a decreased ejection fraction at 37%. Patient was given an IV dose of digoxin and was changed from a Cardizem drip to oral metoprolol, she converted to normal sinus shortly thereafter. I had a discussion with her concerning discharge planning and I also contacted cardiology and discussed the case, they felt that it was safe for the patient to be discharged home on medications with close follow-up in 2 weeks-patient stated that she had called her physician and [place] and had made an appointment for 2 weeks and desired to follow-up with him. On 08/05/2022, patient was seen and examined: On examination she appeared in good health and spirits, she does not appear to be in any distress. Vital signs as documented. Skin warm and dry and without overt rashes. Neck without JVD, thyroid appears normal, trachea is midline, neck is supple. Lungs clear, normal air movement was noted. Heart exam notable for regular rhythm, normal sounds and absence of murmurs, rubs or gallops. Abdomen unremarkable and without evidence of organomegaly, masses, or abdominal aortic enlargement, bowel sounds are present in all 4 quadrants, no abdominal tenderness was noted. Extremities nonedematous, no cyanosis was noted, no clubbing was noted. Neuro: Cranial nerves II through XII are grossly intact, no focal motor deficits were noted, sensation to light touch and pinprick is intact, motor exam 5/5 throughout. Psych: Patient is alert and oriented x3, she does not appear anxious or depressed, she does not appear agitated. Patient appears stable for discharge on 08/05/2022, she was instructed to check on her blood pressure at home and if the systolic pressure was below 95 to contact her PCP. I also talked with the patient about an upcoming trip to [place] in 48 hours, I told her if she felt well that she was able to make that trip. Weight / BMI Weight Weight: 79.605 kg Body Mass Index (BMI) 25.9 ABG / Lab / Microbiology Data Result Diagrams: 08/05/22 05:48 08/05/22 05:48 Laboratory: Laboratory Results - last 24 hr 08/04/22 16:34: Magnesium 2.1, Troponin I High Sens 9 08/04/22 18:56: Troponin I High Sens 8 08/05/22 05:48: WBC 8.4, RBC 3.35 L, Hgb 11.2 L, Hct 35.0 L, MCV 104.5 H, MCH 33.4 H, MCHC 32.0 D, RDW Std Deviation 56.4 H, RDW Coeff of Krista 14.8 H, Plt Count 632 H, MPV 11.7, Immature Gran % (Auto) 0.500, Neut % (Auto) 72.6 H, Lymph % (Auto) 17.1 L, Forrest % (Auto) 8.8, Eos % (Auto) 0.0, Baso % (Auto) 1.0, Absolute Neuts (auto) 6.1, Absolute Lymphs (auto) 1.43, Nucleated RBC % 0.2 08/05/22 05:48: Sodium 137, Potassium 4.5, Chloride 106, Carbon Dioxide 21.0, Anion Gap 10, BUN 10, Creatinine 0.86, Estim Creat Clear Calc 68.16, Est GFR (MDRD) Af Amer 85, Est GFR (MDRD) Non-Af 70, BUN/Creatinine Ratio 11.6, Glucose 95, Calcium 8.7, Magnesium 2.0, Triglycerides 58, Cholesterol 109, LDL Cholesterol 59, VLDL Cholesterol 12, HDL Cholesterol 38 L, TSH 2.30 Radiography Diagnostic Testing: Radiology Impression Echocardiogram 08/04/22 16:01 Interpretation Summary Normal LV size. The estimated ejection fraction is 37 %. The left atrium is moderately enlarged. Small pericardial effusion. Ordering Physician: Malvin Grover Referring Physician: Kenney Vigil Performed By: Ron Aguirre RCS D/C Instructions Discharge Diet: No restrictions Weight Bearing Status: Full weight bearing Meaningful Use Info Meaningful Use Diagnoses (Choose all that apply): CHF CHF DEUCE/ARB ordered at discharge?: No Reason DEUCE/ARB not ordered?: Drug Interaction (Patient was discharged on multiple medications which may affect blood pressure) Documented LVEF (%): 37 Discharge Plan Admission Admit Date/Time: 08/04/22 15:47 Primary Reason for Your Visit: paroxysmal a-fib, congestive heart failure Attending Provider: Tyler Estrella Primary Care Provider: Kenney Vigil Consulting Providers: Patricio Bill ; Malvin Grover Instructions Additional Instructions / Restrictions: Follow-up with your residential subcontractor in 2 weeks Do not take any ibuprofen or Aleve for pain, avoid aspirin, take only Tylenol or Vicodin for pain Any abnormal bleeding in the urine, stool, or nosebleeds-contact your physician Discharge Orders/Prescriptions Prescriptions: New dicyclomine 10 mg Capsule 20 mg PO TID PRN PRN (Reason: diarrhea) Qty: 60 0RF metoprolol tartrate 50 mg Tablet 25 mg PO BID Qty: 60 0RF Eliquis 5 mg Tablet 5 mg PO BID Qty: 60 0RF loperamide 2 mg Capsule 2 mg PO Q4H PRN PRN (Reason: Diarrhea) Qty: 0 0RF spironolactone 50 mg tablet 50 mg PO DAILY Qty: 30 0RF furosemide [Lasix] 40 mg tablet 40 mg PO DAILY Qty: 30 0RF Continued cetirizine 10 mg tablet 10 mg PO DAILY Label Comments: TAKE 1 TABLET BY MOUTH EVERY DAY Referrals / Follow Up: Kenney Vigil DO [Primary Care Provider] - See Referral Note (In 3 to 4 weeks) Disposition Disposition (needs filled in before D/C Order can be placed): Home, Self Care Charges/Coding Visit Charges Inpatient E&M: 68564 Disch Hosp >30min
== END 2022-08-05 16:29 | disposition home or self-care (01) | DRG 308 ==
LOC: ED 15:33 → PCU 15:47
PROVIDERS: Emergency Provider Emergency Medicine; PCP Student in an Organized Health Care Education/Training Program; Visit Provider Internal Medicine
DX: I48.0 Paroxysmal atrial fibrillation (principal); I50.21 Acute systolic (congestive) heart failure; E87.6 Hypokalemia; D75.839 Thrombocytosis, unspecified; Z79.899 Other long term (current) drug therapy
CPT/HCPCS: 36415; 71045; 80048; 80061; 83735; 83880; 84443; 84484; 85025; 93005; 93306; 99285; J7030; Q9957; A4216; C8929; J1940; J2405